=== PATIENT | female | born 1940 | race Caucasian/White ===

== ENCOUNTER 2020-12-07 15:19 | Emergency (ER) | payer OTHER ==
[2020-12-07 15:48] VITALS: BP 168/71; PULSE 63; TEMP 98; BMI 25.8
[2020-12-07] MEDS ORDERED: ACETAMINOPHEN 325 MG TABLET (FP) PO ONE (17:37)
[2020-12-07] MEDS ORDERED: ACETAMINOPHEN 325 MG TABLET (FP) ONE (17:41)
== END 2020-12-07 20:19 | disposition home or self-care (01) ==
LOC: JER 15:19
DX: M25.532 Pain in left wrist (principal); R51.9 Headache, unspecified; W19.XXXA Unspecified fall, initial encounter; Y92.9 Unspecified place or not applicable
CPT/HCPCS: 70450-TC; 70486-TC; 72125-TC; 73070-TC-LT-FY; 73110-TC-LT-FY; 93005; 93010; 99284-25